=== PATIENT | male | born 1980 | race Two or more races ===

== ENCOUNTER 2024-12-22 11:51 | Emergency (ER) | payer OTHER ==
[~2024-12-22] VITALS: Ht 170.2 cm; Wt 97.7 kg
[2024-12-22 11:59] VITALS: BP 134/84; PULSE 100; RESP 20; TEMP 98.8; O2SAT 99
[2024-12-22] MEDS ORDERED: LOSA-381 PO (12:07)
[2024-12-22] MEDS ORDERED: FLUO-418 PO (12:07)
[2024-12-22 12:17] LABS: PLATELET COUNT (AUTO) 269 K/uL (150-450); RED BLOOD CELL COUNT(AUTO) 5.13 MIL/uL (4.50-5.90); RED CELL DISTRIBUTION WIDTH 13.0 % (11.5-14.5); WHITE BLOOD COUNT (AUTO) 5.6 K/uL (4.5-11.0)
[2024-12-22 12:25] LABS: CALCIUM, TOTAL 9.2 mg/dL (8.8-10.5); CREATININE 0.91 mg/dL (0.60-1.30); GLOMERULAR FILTR. RATE CALC > 60 mL/min (>60); GLUCOSE,RANDOM 87 mg/dL (70-110); SODIUM SERUM 137 mmol/L (136-145); UREA NITROGEN, BLOOD 8 mg/dL (7-18)
[2024-12-22] MEDS ORDERED: DICY-1 PO (15:29)
== END 2024-12-22 18:32 | disposition home or self-care (01) ==
LOC: EMS 11:51
DX: A08.39 Other viral enteritis (principal); F41.9 Anxiety disorder, unspecified; I10 Essential (primary) hypertension; Z79.899 Other long term (current) drug therapy
CPT/HCPCS: 80048; 85025; 99283